=== PATIENT | male | born 2000 | race Caucasian/White ===

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

== ENCOUNTER 2020-03-28 11:10 | Emergency (ER) | payer MEDICAID ==
[2020-03-28] MEDS ORDERED: GI COCKTAIL 120 ML BOTTLE PO STA (12:18)
--- NOTE | 2020-03-28 12:20 | ED Physician Documentation ---
History of Present Illness - Stated complaint Stated Complaint: THROAT PX/SWELLING - Chief complaint Chief Complaint: Heent - History obtained from History obtained from: Patient - Additonal information Additional information: Pt comes to the emergency department with chief complaint of sore throat for the last 2 days. Patient states that is mainly in the right side and hurts to swallow. No difficulty breathing. No drooling. Patient has been able to drink plenty of water but it just hurts. No fevers or chills. Patient denies any rhinorrhea or cough. No stomach pain or nausea. Patient has a history of strep once before when he was about 10 years old. He states he is otherwise healthy. No other complaints at this time. Review of Systems Ten Systems: 10 systems reviewed and negative Constitutional: reports: Reviewed and negative Eyes: reports: Reviewed and negative Ears: reports: Reviewed and negative Nose: reports: Reviewed and negative Throat: reports: Sore throat Cardiac: reports: Reviewed and negative Respiratory: reports: Reviewed and negative GI: reports: Reviewed and negative : reports: Reviewed and negative Skin: reports: Reviewed and negative Musculoskeletal: reports: Reviewed and negative Neurologic: reports: Reviewed and negative Psychiatric: reports: Reviewed and negative Endocrine: reports: Reviewed and negative Immunocompromised: reports: Reviewed and negative PD PAST MEDICAL HISTORY - Past Medical History Past Medical History: No Cardiovascular: None Respiratory: None Neuro: None Endocrine/Autoimmune: None GI: None : None HEENT: None Psych: None Musculoskeletal: None Derm: None - Past Surgical History Past Surgical History: No Ortho: Other - Present Medications Home Medications: Ambulatory Orders Medication Instructions Recorded Confirmed Hydrocodone/Acetaminophen [Lortab 5 ml PO Q6HR PRN #60 03/28/20 10 mg-300 mg/15 ml Elxr] - Allergies Allergies/Adverse Reactions: Allergies Allergy/AdvReac Type Severity Reaction Status Date / Time No Known Drug Allergies Allergy Verified 03/28/20 11:19 - Social History Does the pt smoke?: No Smoking Status: Never smoker Does the pt drink ETOH?: No Does the pt have substance abuse?: No - Immunizations Immunizations are current?: Yes - POLST Patient has POLST: No PD ED PE NORMAL - Vitals Vital signs reviewed: Yes - General General: Alert and oriented X 3, No acute distress - HEENT HEENT: Atraumatic, PERRL, EOMI, Moist mucous membranes, Other (Intense erythema R pharynx. Mild edema. Petechiae noted on soft palate. Mild enlargement of right tonsil compared to left. No exudates.) - Neck Neck: Supple, no meningeal sign, Other (Moderate right anterior cervical lymphadenopathy) - Cardiac Cardiac: RRR, No murmur, Strong equal pulses - Respiratory Respiratory: No respiratory distress, Clear bilaterally - Derm Derm: Normal color, Warm and dry, No rash - Extremities Extremities: No deformity - Neuro Neuro: Alert and oriented X 3 - Psych Psych: Normal mood, Normal affect Results - Vitals Vitals: Vital Signs - 24 hr 03/28/20 03/28/20 11:14 12:48 Temperature 37.4 C 38.2 C H Heart Rate 97 102 H Respiratory 14 18 Rate Blood Pressure 129/65 131/70 H O2 Saturation 100 100 Oxygen O2 Source Room air - Labs Labs: Laboratory Tests 03/28/20 03/28/20 12:10 13:45 Infectious Donley Assay POSITIVE A Group A Strep Rapid Negative PD MEDICAL DECISION MAKING - ED course Complexity details: reviewed results, re-evaluated patient, considered differential, d/w patient ED course: Pt was given a dose of Tylenol for his fever and GI cocktail for his sore thr oat. Strep test was negative. The patient was feeling somewhat better and mono test was pending at the time of discharge. I have advised the patient that his symptoms, monitor otherwise, are likely viral in nature and will resolve on their own. The patient's mono test did later come back positive. The patient will be called at home and advised of his diagnosis and what to expect. Departure - Departure Disposition: 01 Home, Self Care Clinical Impression: Acute viral pharyngitis Condition: Stable Instructions: ED Pharyngitis Viral Prescriptions: Hydrocodone/Acetaminophen [Lortab 10 mg-300 mg/15 ml Elxr] 5 ml PO Q6HR PRN #60 PRN Reason: Pain Comments: Your strep test is negative. A mono test is pending is not back yet. Most likely, your fever and sore throat are viral in nature, and will blow over on their own. You may take ibuprofen 800 mg every 8 hours and Tylenol/acetaminophen 650 mg every 4 hours, as needed for fever. If you are not feeling better in the next few days, see your primary doctor for reevaluation. Discharge Date/Time: 03/28/20 14:03
[2020-03-28 12:29] LABS: RAPID STREP SCREEN Negative (Negative)
[2020-03-28 12:49] VITALS: BP 131/70
[2020-03-28] MEDS ORDERED: IBUPROFEN 800 MG TABLET PO STA (13:04)
[2020-03-28] MEDS ORDERED: ACETAMINOPHEN 325 MG TABLET PO STA (13:04)
== END 2020-03-28 14:03 | disposition home or self-care (01) ==
LOC: ED 11:10
DX: J02.8 Acute pharyngitis due to other specified organisms (principal); B97.89 Other viral agents as the cause of diseases classified elsewhere
CPT/HCPCS: 36415; 86308; 87070; 87430; 99283; 99284; A9270

== ENCOUNTER 2021-01-29 11:03 | Emergency (ER) | payer MEDICAID ==
--- NOTE | 2021-01-29 12:55 | ED Physician Documentation ---
PD HPI MALE - Stated complaint Stated Complaint: MALE - Chief complaint Chief Complaint: UTI - History obtained from History obtained from: Patient - History of Present Illness Timing - onset: How many weeks ago (3) Timing - duration: Weeks (3) Timing - details: Gradual onset, Still present, Waxing and waning Associated symptoms: Dysuria (hurts in penis/meatus area when urinating.), Discharge (watery discharge at times.). No: Urinary frequency, Hematuria, Genital sore / lesion, Testiclar pain, Scrotal swelling PD HPI MALE CONTRIB FACTORS: Sexually active (brief new partner couple weeks prior to onset.) Similar symptoms before: Has not had sx before Review of Systems Constitutional: denies: Fever, Chills Throat: denies: Sore throat : reports: Dysuria, Discharge. denies: Hematuria Skin: denies: Rash, Lesions PD PAST MEDICAL HISTORY - Past Medical History Cardiovascular: None Respiratory: None Neuro: None Endocrine/Autoimmune: None GI: None : None HEENT: None Psych: None Musculoskeletal: None Derm: None - Past Surgical History Past Surgical History: No Ortho: Other - Present Medications Home Medications: Ambulatory Orders Medication Instructions Recorded Confirmed Hydrocodone/Acetaminophen [Lortab 5 ml PO Q6HR PRN #60 03/28/20 10 mg-300 mg/15 ml Elxr] Doxycycline Hyclate 100 mg PO BID 10 Days #20 tab 01/29/21 - Allergies Allergies/Adverse Reactions: Allergies Allergy/AdvReac Type Severity Reaction Status Date / Time No Known Drug Allergies Allergy Verified 01/29/21 11:32 - Social History Does the pt smoke?: No Smoking Status: Never smoker Does the pt drink ETOH?: No Does the pt have substance abuse?: No - Immunizations Immunizations are current?: Yes - POLST Patient has POLST: No PD ED PE NORMAL - Vitals Vital signs reviewed: Yes - General General: Alert and oriented X 3, No acute distress, Well developed/nourished - Abdomen Abdomen: Soft, Non tender - Male Male : Other (normal external genitalia. ) - Back Back: No CVA TTP - Derm Derm: Normal color, Warm and dry Results - Vitals Vitals: Oxygen O2 Source Room air - Labs Labs: Laboratory Tests 01/29/21 01/29/21 12:54 12:54 Urine Color YELLOW Urine Clarity CLEAR Urine pH 7.0 Ur Specific Springer 1.010 Urine Protein NEGATIVE Urine Glucose (UA) NEGATIVE Urine Ketones NEGATIVE Urine Occult Blood NEGATIVE Urine Nitrite NEGATIVE Urine Bilirubin NEGATIVE Urine Urobilinogen 0.2 (NORMAL) Ur Leukocyte Esterase NEGATIVE Ur Microscopic Review NOT INDICATED Urine Culture Comments NOT INDICATED Chlam trachomat DNA PCR NEGATIVE N.gonorrhoeae DNA (PCR) NEGATIVE T. vaginalis (PCR) TNP PD MEDICAL DECISION MAKING - ED course Complexity details: reviewed results (normal UA), considered differential (urethritis symptoms with watery discharge and dysuria. UA negative. Sexually active recently. Presume chlamydial. ), d/w patient Departure - Departure Disposition: Home, Self Care Clinical Impression: Urethritis Condition: Stable Record reviewed to determine appropriate education?: Yes Instructions: ED Urethritis Infec Vs Inflam Male Prescriptions: Doxycycline Hyclate 100 mg PO BID 10 Days #20 tab Comments: This sounds most likely to be a chlamydial type infection. We will treat antibiotics targeted at that. The test result for this will result in a day or so. We will call you if we need to change antibiotics if anything else shows as well. Doxycycline twice daily with food for 10 days. Tylenol or ibuprofen if needed for pains. Consider some ibuprofen 2 tablets 2-3 times a day regularly for the next few days for helping with discomfort and inflammation as well. I would anticipate improvement over the next few days and resolved by 3 to 5 days or so. Recheck if not better in that timeframe or if it recurs in the near future. Discharge Date/Time: 01/29/21 14:18
[2021-01-29 13:01] LABS: BILIRUBIN,URINE NEGATIVE (NEGATIVE); GLUCOSE, URINE (UA) NEGATIVE (NEGATIVE); KETONES,URINE (UA) NEGATIVE (NEGATIVE); LEUKOCYTE ESTERASE, URINE NEGATIVE (NEGATIVE); NITRITE,URINE NEGATIVE (NEGATIVE); OCCULT BLOOD,URINE NEGATIVE (NEGATIVE); PROTEIN,URINE NEGATIVE (NEGATIVE); UROBILINOGEN,URINE 0.2 (NORMAL) E.U./dL (NORMAL)
[2021-01-29 13:06] LABS: CLARITY,URINE CLEAR (CLEAR)
[2021-01-29] MEDS ORDERED: cefTRIAXone 500 MG VIAL IM STA (13:26)
[2021-01-29] MEDS ORDERED: LIDOCAINE 1% 2 ML VIAL MC ONE (13:26)
[2021-01-29] MEDS ORDERED: DOXYCYCLINE 100 MG TABLET PO STA (13:26)
[2021-01-29 14:18] VITALS: BP 115/62
[2021-01-29 22:19] LABS: CHLAMYDIA TRACHOMATIS DNA NEGATIVE (NEGATIVE); NEISSERIA GONORRHOEAE DNA NEGATIVE (NEGATIVE)
== END 2021-01-29 14:18 | disposition home or self-care (01) ==
LOC: ED 11:03
DX: N34.2 Other urethritis (principal)
CPT/HCPCS: 81003; 87491; 87591; 96372; 99283; 99284; A9270; 81001; 87086; 87661

== ENCOUNTER 2022-06-03 05:55 | Outpatient (CLI) | payer MEDICAID | END 2022-06-03 05:56 | disposition critical access hospital (66) | LOC: EMS 05:55 | DX: R00.0 Tachycardia, unspecified (principal); R06.00 Dyspnea, unspecified; F41.9 Anxiety disorder, unspecified | CPT/HCPCS: A0425; A0429; A0999 ==

== ENCOUNTER 2022-06-03 06:09 | Emergency (ER) | payer MEDICAID ==
[2022-06-03 06:41] LABS: BASOPHILS # (AUTO) 0.1 10^3/uL (0.0-0.1); BASOPHILS % (AUTO) 0.4 %; EOSINOPHILS % (AUTO) 0.3 %; HCT - HEMATOCRIT 43.6 % (42.0-52.0); HGB - HEMOGLOBIN 15.2 g/dL (14.0-18.0); LYMPHOCYTES # (AUTO) 1.6 10^3/uL (1.5-3.5); LYMPHOCYTES % (AUTO) 12.9 %; MEAN CORPUSCULAR HEMOGLOBIN 30.6 pg (27.0-31.0); MEAN CORPUSCULAR HGB CONC 34.9 g/dL (32.0-36.0); MEAN CORPUSCULAR VOLUME 87.9 fL (80.0-94.0); MEAN PLATELET VOLUME 8.8 fL (7.4-11.4); MONOCYTES # (AUTO) 0.9 10^3/uL (0.0-1.0); MONOCYTES % (AUTO) 7.3 %; NEUTROPHILS # (AUTO) 9.4 10^3/uL (1.5-6.6); NEUTROPHILS % (AUTO) 78.6 %; PLT - PLATELET COUNT 340 10^3/uL (130-450); RED BLOOD COUNT 4.96 10^6/uL (4.70-6.10); RED CELL DISTRIBUTION WIDTH 11.3 % (12.0-15.0)
[2022-06-03 06:55] LABS: ALBUMIN 4.6 g/dL (3.2-5.5); ALBUMIN/GLOBULIN RATIO 1.4 (1.0-2.2); BILIRUBIN,TOTAL 0.4 mg/dL (0.2-1.0); CALCIUM 9.5 mg/dL (8.5-10.3); CREATININE 0.9 mg/dL (0.6-1.2); POTASSIUM 3.8 mmol/L (3.5-5.0); TOTAL PROTEIN 7.8 g/dL (6.7-8.2)
--- NOTE | 2022-06-03 09:44 | ED Physician Documentation ---
PD HPI CHEST PAIN - Stated complaint Stated Complaint: CHEST PAIN, TACHY - Chief complaint Chief Complaint: Cardiac - History obtained from History obtained from: Patient - Additional information Additional information: The pt comes to the ED with CC of CP/tightness after taking cocaine several hours ago. He states the pain started within the first hour after snorting the drug. No dyspnea. No nausea or diaphoresis. The pt denies taking any other drugs at the same time. The pt states his sx mostly resolved after about 10 minutes, though he had a very mild sense of tightness for an hour after that. The pt states he feels fine now. He states he is otherwise healthy and has no other complaints. He has used cocaine before, with no sx. He did not get this batch from somebody new. He denies any cardiac history for himself, and denies family h/o [place] at a young age. PD PAST MEDICAL HISTORY - Past Medical History Cardiovascular: None Respiratory: None Neuro: None Endocrine/Autoimmune: None GI: None : None HEENT: None Psych: None Musculoskeletal: None Derm: None - Past Surgical History Past Surgical History: No Ortho: Other - Present Medications Home Medications: Ambulatory Orders Medication Instructions Recorded Confirmed Hydrocodone/Acetaminophen [Lortab 5 ml PO Q6HR PRN #60 03/28/20 10 mg-300 mg/15 ml Elxr] Doxycycline Hyclate 100 mg PO BID 10 Days #20 tab 01/29/21 - Allergies Allergies/Adverse Reactions: Allergies Allergy/AdvReac Type Severity Reaction Status Date / Time No Known Drug Allergies Allergy Verified 06/03/22 06:25 - Social History Does the pt smoke?: No Smoking Status: Never smoker Does the pt drink ETOH?: No Does the pt have substance abuse?: No - Immunizations Immunizations are current?: Yes - POLST Patient has POLST: No PD ED PE NORMAL - Vitals Vital signs reviewed: Yes - General General: Alert and oriented X 3, No acute distress, Well developed/nourished - HEENT HEENT: Atraumatic, PERRL, EOMI, Moist mucous membranes - Neck Neck: Supple, no meningeal sign - Cardiac Cardiac: RRR, No murmur - Respiratory Respiratory: No respiratory distress, Clear bilaterally - Abdomen Abdomen: Soft, Non tender, Non distended - Derm Derm: Normal color, Warm and dry, No rash - Extremities Extremities: No deformity - Neuro Neuro: Alert and oriented X 3, No motor deficit, No sensory deficit - Psych Psych: Normal mood, Normal affect Results - Vitals Vitals: Oxygen O2 Source Room air - EKG (time done) 0614 EKG releavant findings:: EKG personally interpreted by author of this note. Relevant findings are: Rate: Rate (enter#) (97) Rhythm: NSR [place]: Normal Intervals: Normal [place] QRS: LVH (possible) Ischemia: ST elevation c/w repol Compare to prior EKG: Old EKG unavailable Computer interpretation: Agree with computer - Labs Labs: Laboratory Tests 06/03/22 06/03/22 06/03/22 06:36 06:36 06:36 WBC 12.0 H RBC 4.96 Hgb 15.2 Hct 43.6 MCV 87.9 MCH 30.6 MCHC 34.9 RDW 11.3 L Plt Count 340 MPV 8.8 Neut # (Auto) 9.4 H Lymph # (Auto) 1.6 [place] # (Auto) 0.9 Eos # (Auto) 0.0 Baso # (Auto) 0.1 Absolute Nucleated RBC 0.00 Nucleated RBC % 0.0 Sodium 138 Potassium 3.8 Chloride 103 Carbon Dioxide 24 Anion Gap 11.0 BUN 11 Creatinine 0.9 Estimated GFR (MDRD) 107 Glucose 117 H Calcium 9.5 Total Bilirubin 0.4 AST 18 ALT 13 Alkaline Phosphatase 59 Troponin I High Sens 15.1 Total Protein 7.8 Albumin 4.6 Globulin 3.2 Albumin/Globulin Ratio 1.4 Lipase 31 06/03/22 08:40 WBC RBC Hgb Hct MCV MCH MCHC RDW Plt Count MPV Neut # (Auto) Lymph # (Auto) [place] # (Auto) Eos # (Auto) Baso # (Auto) Absolute Nucleated RBC Nucleated RBC % Sodium Potassium Chloride Carbon Dioxide Anion Gap BUN Creatinine Estimated GFR (MDRD) Glucose Calcium Total Bilirubin AST ALT Alkaline Phosphatase Troponin I High Sens 44.0 H* Total Protein Albumin Globulin Albumin/Globulin Ratio Lipase PD Medical Decision Making - ED course Complexity details: reviewed results, re-evaluated patient, considered differential, d/w patient ED course: The pt was well-appearing at the time of evaluation, and initial work-up, including EKG, CBC, ER abd panel, and troponin, was reviewed by me and found to be unremarkable. I performed a repeat troponin, and this was found to be moderately elevated. This pt is young and extremely low-probability for CAD, and has been asymptomatic for hours. I suspect coronary artery spasm occurred, secondary to cocaine abuse. There is no evidence that he is having an ongoing coronary event or sequelae such as pulmonary edema or dysrhythmia. I have admonished him very seriously that he must never take cocaine again, as he is at risk of this happening and causing lasting damage to his heart. The pt expresses understanding. He is stable for d/c home. Departure - Departure Disposition: Home, Self Care Clinical Impression: Cocaine abuse Chest pain Qualifiers: Chest pain type: unspecified Qualified Code(s): R07.9 - Chest pain, unspecified Condition: Stable Instructions: ED Crack Abuse Comments: Your initial cardiac enzymes looked good, and your EKG does not show any evidence of lasting damage to your heart muscle. Your second set of cardiac enzymes did demonstrate that most likely, the cocaine caused when your coronary arteries to spasm and temporarily diminish the blood flow to your heart muscle. Given that your symptoms resolved, and given that at your age, your exceedingly unlikely to have any underlying coronary artery disease, it is certain that you are not having an ongoing "heart attack". However, it is of extreme importance that you never take cocaine again, as this could happen again and the consequences could be worse and cause a heart attack with lasting heart muscle damage or worse. Please follow-up with your doctor to discuss drug rehabilitation programs if you feel this is needed for you. If you do have episodes of chest pain like you had today, but not in the setting of taking drugs, then you should return to the emergency department for reevaluation. Discharge Date/Time: 06/03/22 10:10
[2022-06-03 10:06] VITALS: BP 120/78
== END 2022-06-03 10:10 | disposition home or self-care (01) ==
LOC: EDBD → ED 06:09
DX: F14.10 Cocaine abuse, uncomplicated (principal); R07.9 Chest pain, unspecified
CPT/HCPCS: 36415; 80053; 83690; 84484; 85025; 93005; 99283; 99284

== ENCOUNTER 2023-09-04 08:10 | Outpatient (CLI) | payer OTHER | END 2023-09-04 22:38 | disposition left against medical advice (07) | LOC: EMS 08:10 | DX: R55 Syncope and collapse (principal); S01.111A Laceration without foreign body of right eyelid and periocular area, initial encounter; W18.39XA Other fall on same level, initial encounter; Y93.89 Activity, other specified; Y92.019 Unspecified place in single-family (private) house as the place of occurrence of the external cause ==

== ENCOUNTER 2023-09-04 08:41 | Emergency (ER) | payer MEDICAID, OTHER ==
[2023-09-04 09:28] LABS: BASOPHILS % (AUTO) 0.5 %; EOSINOPHILS # (AUTO) 0.1 10^3/uL (0.0-0.7); EOSINOPHILS % (AUTO) 1.7 %; HCT - HEMATOCRIT 44.8 % (42.0-52.0); HGB - HEMOGLOBIN 15.1 g/dL (14.0-18.0); LYMPHOCYTES # (AUTO) 1.8 10^3/uL (1.5-3.5); LYMPHOCYTES % (AUTO) 28.4 %; MEAN CORPUSCULAR HEMOGLOBIN 30.3 pg (27.0-31.0); MEAN CORPUSCULAR HGB CONC 33.7 g/dL (32.0-36.0); MEAN PLATELET VOLUME 9.6 fL (7.4-11.4); MONOCYTES # (AUTO) 0.5 10^3/uL (0.0-1.0); MONOCYTES % (AUTO) 7.5 %; NEUTROPHILS % (AUTO) 61.7 %; PLT - PLATELET COUNT 273 10^3/uL (130-450); RED BLOOD COUNT 4.98 10^6/uL (4.70-6.10); RED CELL DISTRIBUTION WIDTH 11.4 % (12.0-15.0); WHITE BLOOD COUNT 6.4 x10^3/uL (4.8-10.8)
[2023-09-04 09:42] LABS: ALBUMIN 4.9 g/dL (3.2-5.5); ALKALINE PHOSPHATASE 58 IU/L (42-121); ALT ALANINE AMINOTRANSFERASE 15 IU/L (10-60); AST ASPARTATE AMINOTRANSFERASE 20 IU/L (10-42); BILIRUBIN,TOTAL 0.9 mg/dL (0.2-1.0); BUN - BLOOD UREA NITROGEN 14 mg/dL (6-20); CALCIUM 9.8 mg/dL (8.5-10.3); CARBON DIOXIDE - CO2 26 mmol/L (21-32); CHLORIDE 104 mmol/L (101-111); CREATININE 0.9 mg/dL (0.6-1.3); GFR - MDRD 105 (>89); GLUCOSE 106 mg/dL (74-104); POTASSIUM 3.8 mmol/L (3.5-4.5); SODIUM 138 mmol/L (135-145); TOTAL PROTEIN 7.3 g/dL (6.4-8.9)
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
[2023-09-04 09:45] LABS: LIPASE < 10 U/L (11-82)
[2023-09-04 09:51] LABS: TROPONIN I HIGH SENSITIVITY < 2.3 ng/L (2.3-19.7)
[2023-09-04] MEDS: LIDOCAINE-EPINEPH-TETRACAINE 3 ML SYRINGE TOP STA (10:07)
[2023-09-04] MEDS: LIDOCAINE 1%-EPI 1:100000 20 ML MDV SUBQ STA (11:26)
[2023-09-04 11:40] VITALS: BP 112/65; O2SAT 99
== END 2023-09-04 11:40 | disposition home or self-care (01) ==
LOC: ED 08:41
DX: R55 Syncope and collapse (principal); S80.01XA Contusion of right knee, initial encounter; S01.111A Laceration without foreign body of right eyelid and periocular area, initial encounter; W18.09XA Striking against other object with subsequent fall, initial encounter; Y93.89 Activity, other specified; Y99.0 Civilian activity done for income or pay
CPT/HCPCS: 1040M; 12001; 36415; 80053; 83690; 84484; 85025; 93005; 99283; 99284